=== PATIENT | female | born 1970 | race Caucasian/White ===

== ENCOUNTER → 2024-02-02 15:01 | Outpatient (REF) | payer OTHER, SELFPAY | LOC: HWRCS 15:01 | PROVIDERS: ATTENDING PHYSICIAN Internal Medicine Cardiovascular Disease; FAMILY PHYSICIAN Family Medicine | DX: R00.0 Tachycardia, unspecified (principal); Q22.1 Congenital pulmonary valve stenosis | CPT/HCPCS: 93306 ==